=== PATIENT | female | born 1955 | race Caucasian/White ===

== ENCOUNTER 2016-07-05 10:54 | Emergency (ER) | payer OTHER ==
[2016-07-05 11:22] VITALS: BP 130/85
--- NOTE | 2016-07-05 12:17 | UC ---
Upper Extremity HPI - HPI Summary HPI Summary: Patient is a 61yo right hand dominant F who presents to with CC of left shoulder and left scapula pain with headache since last evening around 10pm after a poly lift fell directly onto the L posterior shoulder. She states she felt immediate pain which radiates up to the left side of the neck, down the arm to the elbow and to the anterior shoulder. She feels as thought it is muscle "spasms" which is causing her to have the headaches. She was able to actively rotate the shoulder and adduct and abduct the shoulder, but with 5/10 pain. She has never previously injured the shoulder. Denies bruising, but notes to some redness over the area last night. She was able to sleep without problems. Denies hitting her head. Pain was worse yesterday and better today. Denies numbness or tingling in the arm. She has been icing the shoulder which has improved the pain. - History of Current Complaint Chief Complaint: UCBackPain Stated Complaint: SHOULDER AND NECK INJURY Time Seen by Provider: 07/05/16 12:02 Hx Obtained From: Patient ?: No Onset/Duration: Sudden Onset Severity Initially: Moderate Severity Currently: Mild Pain Intensity: 4 Pain Scale Used: 0-10 Numeric Location Of Pain: Is Discrete @ - left shoulder Character: Aching Aggravating Factor(s): Movement, Internal/External Rotation, Abduction, Adduction Alleviating Factor(s): Ice Associated Signs And Symptoms: Positive: Redness Related History: Dominant Hand Right - Risk Factors Non-Orthopedic Risk Factor: Negative DVT Risk Factors: Negative Septic Arthritis Risk Factor: Negative Compartment Syndrome Risk Factors: Pain - Allergies/Home Medications Allergies/Adverse Reactions: Allergies Allergy/AdvReac Type Severity Reaction Status Date / Time Nitrofurantoin Allergy Severe Swelling Verified 07/05/16 11:22 [From Macrodantin] Shellfish Allergy Allergy Severe Rash Verified 07/05/16 11:22 Ciprofloxacin [From Cipro] Allergy Hives Verified 07/05/16 11:22 PMH/Surg Hx/FS Hx/Imm Hx Previously Healthy: Yes Endocrine History Of: Denies: Diabetes, Thyroid Disease Cardiovascular History Of: Reports: Hypertension Denies: Cardiac Disorders Respiratory History Of: Denies: COPD, Asthma GI/ History Of: Denies: Ulcer - Surgical History Surgical History: Yes Surgery Procedure, Year, and Place: hysterectomy 2007. appendectomy. tonsillectomy - Family History Known Family History: Positive: None - Social History Occupation: Employed Full-time Lives: With Family Alcohol Use: Occasionally Substance Use Type: None Smoking Status (MU): Never Smoked Tobacco Have You Smoked in the Last Year: No - Immunization History Most Recent Influenza Vaccination: 2014 Most Recent Tetanus Shot: UTD Review of Systems Constitutional: Negative Skin: Negative Respiratory: Negative Cardiovascular: Negative Motor: Other - no decreased ROM Musculoskeletal: Arthralgia, Myalgia - pain over posterior shoulder over scapula and rhomboid radiating to the anterior shoulder and left side of neck Neurological: Headache Psychological: Negative All Other Systems Reviewed And Are Negative: Yes Physical Exam Triage Information Reviewed: Yes Completion Of Physical Exam Limited Due To: Extremis Appearance: Well-Nourished Vital Signs: Initial Vital Signs Temp 97.7 F 07/05/16 11:15 Pulse 76 07/05/16 11:15 Resp 16 07/05/16 11:15 BP 130/85 07/05/16 11:15 Pulse Ox 100 07/05/16 11:15 Vital Signs Reviewed: Yes Eyes: Positive: Conjunctiva Clear Neck exam: Normal Neck: Positive: Supple, No Lymphadenopathy, Other: - tenderness over left sternoclediomastoid muscle on palpation Respiratory Exam: Normal Cardiovascular Exam: Normal Cardiovascular: Positive: RRR Musculoskeletal: Positive: Other: - pain with abduction, no pain with adduction. pain with forced adduction. empty can test Neurological Exam: Normal Neurological: Positive: Alert Psychological Exam: Normal Psychological: Positive: Normal Response To Family, Age Appropriate Behavior Skin Exam: Normal Upper Extremity Course/Dx - Course Course Of Treatment: Pain over posterior shoulder over scapula and rhomboid after poly fell on back last evening at work. Pain is radiating to the L side of the neck causing ABDALLA. Empyt can and drop arm test both positive. Barron mian test positive. yerguson test negative. pain on palpaion over sternoclediomastoid muscle of L side and posterior shoulder. Denies pain anteriorly with passive ROM. Full ROM of left shoulder but with pain. Xray of shoulder reveals. Will give flexeril for 5 days and out of work note for 2 days. She is to return if symptoms become worse or numbness or tingling develop. Referred to Dr. Orellana if symptoms persist. - Differential Dx/Diagnosis Differential Diagnosis/HQI/PQRI: Contusion, Fracture (Closed), Strain, Sprain Provider Diagnoses: Muscle Strain Discharge - Discharge Plan Condition: Stable Disposition: HOME Prescriptions: Cyclobenzaprine TAB* [Flexeril 10 MG TAB*] 10 mg PO BID PRN #10 tab PRN Reason: Pain Patient Education Materials: Contusion in Adults (ED), Muscle Spasm (ED) Forms: *Work Release Referrals: Marie Francis RN [Primary Care Provider] - Megan Orellana MD [Medical Doctor] - Additional Instructions: Muscle contusion with spasms from injury: Flexeril: This medication is a muscle relaxant and can help relieve muscle spasms, muscle strain, or pain sensations. Flexeril can cause side effects that may impair your thinking or reactions. Be careful if you drive or do anything that requires you to be awake and alert. Avoid drinking alcohol, which can increase some of the side effects of Flexeril. Ibuprofen 600mg three times daily with meals for discomfort. Return to urgent care if symptoms worsen or fail to improve, notice worsening swelling, warmth or redness around the joint, develop fever, or pain is uncontrolled with OTC medications. Moist heat to the area for comfort. Warm showers or baths may improve symptoms. It is important to remain mobile as tolerated to prevent stiffening of the joints and delay healing. Follow up with your PCP. If symptoms remain for > 6 weeks, please seek special medical attention from an orthopedic physician.
--- NOTE | 2016-07-05 12:57 | RAD ---
INDICATION: Left shoulder injury. TECHNIQUE: 4 views of the left shoulder were obtained. FINDINGS: The bones are in normal alignment. No fracture is seen. There is moderate osteoarthritic change in the acromioclavicular joint. IMPRESSION: NO EVIDENCE OF FRACTURE.
--- NOTE | 2016-07-05 12:58 | RAD ---
INDICATION: Left scapular injury. TECHNIQUE: 3 views of the left scapula were obtained. FINDINGS: The bones are in normal alignment. No fracture is seen. Joint spaces appear maintained. IMPRESSION: NO EVIDENCE FOR FRACTURE.
== END 2016-07-05 13:25 | disposition home or self-care (01) ==
LOC: UCEAST 10:54
DX: S46.912A Strain of unspecified muscle, fascia and tendon at shoulder and upper arm level, left arm, initial encounter (principal); W20.8XXA Other cause of strike by thrown, projected or falling object, initial encounter; Y93.89 Activity, other specified; Y92.9 Unspecified place or not applicable; I10 Essential (primary) hypertension; Z90.710 Acquired absence of both cervix and uterus; Z88.1 Allergy status to other antibiotic agents; Z91.013 Allergy to seafood
CPT/HCPCS: 99212; G0463

== ENCOUNTER 2017-01-22 15:17 | Emergency (ER) | payer OTHER ==
[2017-01-22 17:26] VITALS: BP 135/88
--- NOTE | 2017-01-22 17:31 | UC ---
FLU HPI - HPI Summary HPI Summary: 1 WEEK OF FATIGUE, MALAISE, ST, CONGESTION, MILD COUGH. HAD SEVERAL EPISODES OF WATERY STOOLS YESTERDAY. NONE TODAY. ALSO C/O NAUSEA. HAD FLU SHOT PRIOR TO ONSET OF SX. - History of Current Complaint Chief Complaint: UCRespiratory Stated Complaint: COLD & SORE THROAT Time Seen by Provider: 01/22/17 16:39 Hx Obtained From: Patient Onset/Duration: Gradual Onset, Lasting Days, Still Present Severity Currently: Mild Severity Initially: Mild Pain Intensity: 2 Pain Scale Used: 0-10 Numeric Associated Signs & Symptoms: Positive: Myalgia, Cough, Sore Throat, Nasal Congestion, Diarrhea. Negative: Fever, Vomiting - Allergy/Home Medications Allergies/Adverse Reactions: Allergies Allergy/AdvReac Type Severity Reaction Status Date / Time Nitrofurantoin Allergy Severe Swelling Verified 01/22/17 15:31 [From Macrodantin] Shellfish Allergy Allergy Severe Rash Verified 01/22/17 15:31 Ciprofloxacin [From Cipro] Allergy Hives Verified 01/22/17 15:31 PMH/Surg Hx/FS Hx/Imm Hx Cardiovascular History: Hypertension - Surgical History Surgical History: Yes Surgery Procedure, Year, and Place: hysterectomy 2006. appendectomy. tonsillectomy - Family History Known Family History: Positive: Hypertension - Social History Alcohol Use: Rare Substance Use Type: None Smoking Status (MU): Never Smoked Tobacco Have You Smoked in the Last Year: No - Immunization History Most Recent Influenza Vaccination: Most Recent Tetanus Shot: UTD Review of Systems Constitutional: Fatigue ENT: Sore Throat, Nasal Discharge Respiratory: Cough Gastrointestinal: Negative Genitourinary: Negative All Other Systems Reviewed And Are Negative: Yes Physical Exam Triage Information Reviewed: Yes Appearance: Well-Appearing, No Pain Distress, Well-Nourished Vital Signs: Initial Vital Signs Temp 97.4 F 01/22/17 15:26 Pulse 88 01/22/17 15:26 Resp 16 01/22/17 15:26 BP 136/84 01/22/17 15:26 Pulse Ox 100 01/22/17 15:26 Vital Signs Reviewed: Yes Eyes: Positive: Conjunctiva Clear ENT: Positive: Hearing grossly normal, Pharynx normal, TMs normal Neck: Positive: Supple, Nontender, No Lymphadenopathy Respiratory Exam: Normal Cardiovascular Exam: Normal Abdomen Description: Positive: Soft Musculoskeletal: Positive: No Edema Neurological: Positive: Alert Psychological: Positive: Age Appropriate Behavior Skin: Negative: rashes Diagnostics - Laboratory Diagnostic Studies Completed/Ordered: RAPID STREP NEGATIVE Flu Course/Dx - Differential Dx/Diagnosis Provider Diagnoses: ACUTE VIRAL SYNDROME Discharge - Discharge Plan Condition: Stable Disposition: HOME Prescriptions: Ondansetron ODT TAB* [Zofran Odt TAB*] 4 mg PO Q6H PRN #20 tab.odt PRN Reason: Nausea/Vomiting Patient Education Materials: Viral Syndrome (ED) Forms: *Work Release Referrals: Kimber IVEY SEWING ROOM SUPERVISOR,Marie [Primary Care Provider] - If Needed Additional Instructions: STREP TEST NEGATIVE. ENSURE ADEQUATE HYDRATION. CLEAR LIQUIDS, BLAND DIET. AVOID CAFFEINE, DAIRY, GREASY, SPICY FOODS. ONCE YOU ARE TOLERATING CLEAR LIQUIDS YOU CAN ADVANCE TO SIMPLE, BLAND FOODS. FOLLOW-UP WITH YOUR PCP IF YOU ARE NOT IMPROVING EXPECTED OVER THE NEXT WEEK OR SO.
== END 2017-01-22 17:23 | disposition home or self-care (01) ==
LOC: UCEAST 15:17
DX: B34.9 Viral infection, unspecified (principal)
CPT/HCPCS: 87651; 99212; G0463

== ENCOUNTER 2017-03-12 15:51 | Emergency (ER) | payer OTHER ==
[2017-03-12 18:19] LABS: ABS Basophils 0 10^3/ul (0-0.2); ABS Eosinophils 0 10^3/ul (0-0.6); ABS Lymphocytes 1.1 10^3/ul (1.0-4.8); ABS Monocytes 0.3 10^3/ul (0-0.8); ABS Neutrophils 3.8 10^3/ul (1.5-7.7); ABS Nucleated RBC 0 10^3/ul; Eosinophil % 0.7 % (0-6); Hematocrit 40 % (35-47); Lymphocyte % 21.9 % (25-47); Mean Corpuscular HGB Conc 35 g/dl (31-36); Mean Corpuscular Hemoglobin 32 pg (27-31); Mean Corpuscular Volume 90 fL (80-97); Mean Platelet Volume 8 um3 (7.4-10.4); Nucleated Red Blood Cells % 0; Platelet Count 296 10^3/ul (150-450); Red Blood Count 4.43 10^6/ul (4.0-5.4); Red Cell Distribution Width 13 % (10.5-15); White Blood Count 5.3 10^3/ul (3.5-10.8)
[2017-03-12 18:30] LABS: EGFR Non-African American 68.2 (>60)
[2017-03-12 18:37] LABS: INR 0.85 (0.77-1.02)
--- NOTE | 2017-03-12 19:04 | RAD ---
HISTORY: Chest pain COMPARISONS: March 28, 2015 VIEWS: 1: frontal portable view of the chest at 6:38 PM FINDINGS: LINES AND TUBES: None. CARDIOMEDIASTINAL SILHOUETTE: The cardiomediastinal silhouette is normal for portable technique. PLEURA: The costophrenic angles are sharp. No pleural abnormalities are noted. LUNG PARENCHYMA: The lungs are clear. ABDOMEN: The upper abdomen is clear. There is no subphrenic gas. BONES AND SOFT TISSUES: No bone or soft tissue abnormalities are noted. IMPRESSION: NO ACTIVE CARDIOPULMONARY DISEASE.
[2017-03-12 22:09] VITALS: BP 122/90
--- NOTE | 2017-03-13 12:00 | ED ---
Cher Frances Julia, scribed for Jose Armando Prieto MD on 03/12/17 at 1755 . HPI Chest Pain - HPI Summary HPI Summary: This patient is a 62 year old F presenting to [facility] with a chief complaint of mid sternal chest pressure since 14:30 today. Patient reports dizziness, tingling, lightheadedness, elevated HR, and being flushed. Patient reports anxiety about symptoms and states I just dont feel like myself. Patient denies any radiating pain. The patient rates the pain 1/10 in severity. Symptoms aggravated by nothing. Symptoms alleviated by nothing. Patient reports her BP was 140/86 earlier today. Patient has a history of HTN. Patient denies history of TN or PE. Patients grounds restoration specialist is Dr. Arreola. Patient currently takes Lovenox. - History of Current Complaint Chief Complaint: EDChestPainROMI Time Seen by Provider: 03/12/17 16:58 Hx Obtained From: Patient Onset/Duration: Started Hours Ago Timing: Constant Pain Intensity: 1 Pain Scale Used: 0-10 Numeric Chest Pain Location: Mid Sternal Chest Pain Radiates: No Character: Pressure/Squeezing Aggravating Factor(s): Nothing Alleviating Factor(s): Nothing Associated Signs and Symptoms: Positive: Other: - dizziness, tingling, lightheadedness, elevated HR, and being flushed - Allergy/Home Medications Allergies/Adverse Reactions: Allergies Allergy/AdvReac Type Severity Reaction Status Date / Time Nitrofurantoin Allergy Severe Swelling Verified 01/22/17 15:31 [From Macrodantin] Shellfish Allergy Allergy Severe Rash Verified 01/22/17 15:31 Ciprofloxacin [From Cipro] Allergy Hives Verified 01/22/17 15:31 PMH/Surg Hx/FS Hx/Imm Hx Endocrine/Hematology History: Denies: Hx Diabetes, Hx Thyroid Disease Cardiovascular History: Reports: Hx Hypertension Denies: Hx Myocardial Infarction, Hx Pacemaker/ICD Respiratory History: Denies: Hx Asthma, Hx Chronic Obstructive Pulmonary Disease (COPD), Hx Pulmonary Embolism GI History: Denies: Hx Ulcer History: Denies: Hx Renal Disease Musculoskeletal History: Denies: Hx Rheumatoid Arthritis Sensory History: Denies: Hx Hearing Aid Psychiatric History: Denies: Hx Panic Disorder - Cancer History Cancer Type, 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 Hysterectomy - Surgical History Surgery Procedure, Year, and Place: hysterectomy 2007. appendectomy. tonsillectomy - Immunization History Date of Influenza Vaccine: 01/07 Immunizations Up to Date: Yes Infectious Disease History: No Infectious Disease History: Denies: Hx Hepatitis, Hx Human Immunodeficiency Virus (HIV), Traveled Outside the [place] in Last 30 Days - Family History Known Family History: Positive: None, Hypertension - Social History Alcohol Use: Rare Substance Use Type: Reports: None Smoking Status (MU): Never Smoked Tobacco Have You Smoked in the Last Year: No Review of Systems Positive: Other - "flushed" Positive: Palpitations - elevated HR, Chest Pain Neurological: Other - dizziness, tingling, lightheaded Positive: Anxious All Other Systems Reviewed And Are Negative: Yes Physical Exam - Summary Physical Exam Summary: Appearance: The patient is well-nourished in no acute distress and in no acute pain. Skin: The skin is warm and dry and skin color reflects adequate perfusion. HEENT: The head is normocephalic and atraumatic. The pupils are equal and reactive. The conjunctivae are clear and without drainage. Nares are patent and without drainage. Mouth reveals moist mucous membranes and the throat is without erythema and exudate. The external ears are intact. The ear canals are patent and without drainage. The tympanic membranes are intact. Neck: the neck is supple with full range of motion and non-tender. There are no carotid bruits. There is no neck vein distension. Respiratory: Chest is non-tender. Lungs are clear to auscultation and breath sounds are symmetrical and equal. Cardiovascular: Heart is regular rate and rhythm. There is no murmur or rub auscultated. There is no peripheral edema and pulses are symmetrical and equal. Abdomen: The abdomen is soft and non-tender. There are normal bowel sounds heard in all four quadrants and there is no organomegaly palpated. Musculoskeletal: There is no back tenderness noted. Extremities are non-tender with full range of motion. There is good capillary refill. There is no peripheral edema or calf tenderness elicited. There is mild tenderness to the L peristernal area. Neurological: Patient is alert and oriented to person, place and time. The patient has symmetrical motor strength in all four extremities. Cranial nerves are grossly intact. Deep tendon reflexes are symmetrical and equal in all four extremities. Psychiatric: The patient has an appropriate affect and does not exhibit any anxiety or depression. Triage Information Reviewed: Yes Vital Signs On Initial Exam: Initial Vitals Temp Pulse Resp BP Pulse Ox 99.3 F 107 16 145/95 100 03/12/17 16:04 03/12/17 16:04 03/12/17 16:04 03/12/17 16:04 03/12/17 16:04 Vital Signs Reviewed: Yes - Luis Coma Scale Coma Scale Total: 15 Diagnostics - Vital Signs Vital Signs Temp Pulse Resp BP Pulse Ox 03/12/17 16:24 99 F 101 21 147/88 99 03/12/17 16:04 99.3 F 107 16 145/95 100 - Laboratory Lab Results: Lab Results 03/12/17 03/12/17 03/12/17 Range/Units 18:05 18:05 18:05 WBC 5.3 (3.5-10.8) 10^3/ul RBC 4.43 (4.0-5.4) 10^6/ul Hgb 14.0 (12.0-16.0) g/dl Hct 40 (35-47) % MCV 90 (80-97) fL MCH 32 H (27-31) pg MCHC 35 (31-36) g/dl RDW 13 (10.5-15) % Plt Count 296 (150-450) 10^3/ul MPV 8 (7.4-10.4) um3 Neut % (Auto) 71.7 (38-83) % Lymph % (Auto) 21.9 L (25-47) % [place] % (Auto) 5.3 (1-9) % Eos % (Auto) 0.7 (0-6) % Baso % (Auto) 0.4 (0-2) % Absolute Neuts (auto) 3.8 (1.5-7.7) 10^3/ul Absolute Lymphs (auto) 1.1 (1.0-4.8) 10^3/ul Absolute Monos (auto) 0.3 (0-0.8) 10^3/ul Absolute Eos (auto) 0 (0-0.6) 10^3/ul Absolute Basos (auto) 0 (0-0.2) 10^3/ul Absolute Nucleated RBC 0 10^3/ul Nucleated RBC % 0 INR (Anticoag Therapy) 0.85 (0.77-1.02) D-Dimer, Quantitative < 200 (Less Than 230) ng/mL Sodium 140 (133-145) mmol/L Potassium 3.4 L (3.5-5.0) mmol/L Chloride 103 (101-111) mmol/L Carbon Dioxide 29 (22-32) mmol/L Anion Gap 8 (2-11) mmol/L BUN 16 (6-24) mg/dL Creatinine 0.85 (0.51-0.95) mg/dL Est GFR ( Amer) 87.7 (>60) Est GFR (Non-Af Amer) 68.2 (>60) BUN/Creatinine Ratio 18.8 (8-20) Glucose 100 (70-100) mg/dL Lactic Acid (0.5-2.0) mmol/L Calcium 10.0 (8.6-10.3) mg/dL Total Bilirubin 0.30 (0.2-1.0) mg/dL AST 20 (13-39) U/L ALT 20 (7-52) U/L Alkaline Phosphatase 69 (34-104) U/L Troponin I 0.00 (<0.04) ng/mL Total Protein 7.3 (6.4-8.9) g/dL Albumin 4.5 (3.2-5.2) g/dL Globulin 2.8 (2-4) g/dL Albumin/Globulin Ratio 1.6 (1-3) 03/12/17 03/12/17 Range/Units 18:05 20:47 WBC (3.5-10.8) 10^3/ul RBC (4.0-5.4) 10^6/ul Hgb (12.0-16.0) g/dl Hct (35-47) % MCV (80-97) fL MCH (27-31) pg MCHC (31-36) g/dl RDW (10.5-15) % Plt Count (150-450) 10^3/ul MPV (7.4-10.4) um3 Neut % (Auto) (38-83) % Lymph % (Auto) (25-47) % [place] % (Auto) (1-9) % Eos % (Auto) (0-6) % Baso % (Auto) (0-2) % Absolute Neuts (auto) (1.5-7.7) 10^3/ul Absolute Lymphs (auto) (1.0-4.8) 10^3/ul Absolute Monos (auto) (0-0.8) 10^3/ul Absolute Eos (auto) (0-0.6) 10^3/ul Absolute Basos (auto) (0-0.2) 10^3/ul Absolute Nucleated RBC 10^3/ul Nucleated RBC % INR (Anticoag Therapy) (0.77-1.02) D-Dimer, Quantitative (Less Than 230) ng/mL Sodium (133-145) mmol/L Potassium (3.5-5.0) mmol/L Chloride (101-111) mmol/L Carbon Dioxide (22-32) mmol/L Anion Gap (2-11) mmol/L BUN (6-24) mg/dL Creatinine (0.51-0.95) mg/dL Est GFR ( Amer) (>60) Est GFR (Non-Af Amer) (>60) BUN/Creatinine Ratio (8-20) Glucose (70-100) mg/dL Lactic Acid 1.6 (0.5-2.0) mmol/L Calcium (8.6-10.3) mg/dL Total Bilirubin (0.2-1.0) mg/dL AST (13-39) U/L ALT (7-52) U/L Alkaline Phosphatase (34-104) U/L Troponin I 0.00 (<0.04) ng/mL Total Protein (6.4-8.9) g/dL Albumin (3.2-5.2) g/dL Globulin (2-4) g/dL Albumin/Globulin Ratio (1-3) Result Diagrams: 03/12/17 18:05 03/12/17 18:05 Lab Statement: Any lab studies that have been ordered have been reviewed, and results considered in the medical decision making process. - Radiology CXR Radiology Interpretation Completed By: Radiologist - NO ACTIVE CARDIOPULMONARY DISEASE. ED Physician has reviewed this report. - EKG 16:06 Cardiac Rate: Tachycardia EKG Rhythm: Sinus Tachycardia - at 104 BPM EKG Interpretation: L axis deviation, L anterior vesicular block EKG Comparison: No Significant Change - from all previous EKG Chest Pain Course/Dx - Course Course Of Treatment: Ms. Perenyi presented with left chest pressure and just not feeling right starting about 1430. She was stable in appearance with borderline tachycardia. She was noted to have the borderline tachycardia on previous presentations and it improved here. Her W/U was negative including two troponins and a d-dimer. She was D/C'd to F/U closely. - Diagnoses Provider Diagnoses: Chest pain Discharge - Discharge Plan Condition: Stable Disposition: HOME Patient Education Materials: Chest Pain (ED) Referrals: Kimber IVEY BUSINESS AFFAIRS MANAGER,Marie [Primary Care Provider] - Additional Instructions: Patient should follow up with Primary Care Physician next week if symptoms are not improved. RETURN TO THE EMERGENCY DEPARTMENT FOR CHANGING OR WORSENING SYMPTOMS. The documentation as recorded by the Cher hurd Julia accurately reflects the service I personally performed and the decisions made by me, Jose Armando Prieto MD.
== END 2017-03-12 22:04 | disposition home or self-care (01) ==
LOC: ED 15:51
DX: R07.89 Other chest pain (principal); Z88.8 Allergy status to other drugs, medicaments and biological substances; Z88.3 Allergy status to other anti-infective agents
CPT/HCPCS: 36415; 71045; 80053; 83605; 84484; 85025; 85379; 85610; 93005; 99284

== ENCOUNTER 2017-06-04 11:00 | Emergency (ER) | payer OTHER ==
[2017-06-04 11:21] VITALS: BP 143/92
--- NOTE | 2017-06-04 11:36 | UC ---
Respiratory Complaint HPI - HPI Summary HPI Summary: Has had prod cough for over 7 days, did see PCP and dx: viral illmness. Richard cough very bad, yellow phlegm, has occasional fever/chills OTC cold meds not helping - History of Current Complaint Chief Complaint: UCRespiratory Stated Complaint: CHEST CONGESTION Time Seen by Provider: 06/04/17 11:27 Hx Obtained From: Patient ?: No Onset/Duration: Gradual Onset Timing: Constant Severity Initially: Mild Severity Currently: Moderate Pain Intensity: 2 Character: Cough: Productive Aggravating Factors: Deep Breaths, Recumbent Position Alleviating Factors: Nothing Associated Signs And Symptoms: Positive: Fever, Chills, Nasal Congestion. Negative: Hemoptysis - Allergies/Home Medications Allergies/Adverse Reactions: Allergies Allergy/AdvReac Type Severity Reaction Status Date / Time ciprofloxacin [From Cipro] Allergy Hives Verified 06/04/17 11:21 nitrofurantoin Allergy Swelling Verified 06/04/17 11:21 [From Macrodantin] shellfish derived Allergy Rash Verified 06/04/17 11:21 PMH/Surg Hx/FS Hx/Imm Hx Previously Healthy: Yes Cardiovascular History: Hypertension - Surgical History Surgical History: Yes Surgery Procedure, Year, and Place: hysterectomy 2006. appendectomy. tonsillectomy - Family History Known Family History: Positive: None, Hypertension - Social History Occupation: Employed Full-time - [employer] Lives: Alone Alcohol Use: Rare Substance Use Type: None Smoking Status (MU): Never Smoked Tobacco Have You Smoked in the Last Year: No - Immunization History Most Recent Influenza Vaccination: Most Recent Tetanus Shot: UTD Review of Systems Constitutional: Fever, Chills, Fatigue Skin: Negative Respiratory: Cough Cardiovascular: Negative Gastrointestinal: Negative Musculoskeletal: Negative Neurological: Negative Psychological: Negative Is Patient Immunocompromised?: No All Other Systems Reviewed And Are Negative: Yes Physical Exam Triage Information Reviewed: Yes Appearance: Well-Appearing, No Pain Distress, Well-Nourished Vital Signs: Initial Vital Signs Temp 98.4 F 06/04/17 11:17 Pulse 88 06/04/17 11:17 Resp 18 06/04/17 11:17 BP 143/92 06/04/17 11:17 Pulse Ox 100 06/04/17 11:17 Vital Signs Reviewed: Yes Eyes: Positive: Conjunctiva Clear ENT: Positive: Nasal congestion. Negative: Nasal drainage, Sinus tenderness Neck exam: Normal Neck: Positive: No Lymphadenopathy Respiratory: Positive: Rhonchi, Other: - persistent prod cough. Negative: Wheezing Cardiovascular Exam: Normal Cardiovascular: Positive: RRR Musculoskeletal Exam: Normal Neurological Exam: Normal Psychological Exam: Normal Skin Exam: Normal UC Diagnostic Evaluation - Laboratory O2 Sat by Pulse Oximetry: 100 - Radiology Xray Interpretation: No Acute Changes Radiology Interpretation Completed By: Radiologist Respiratory Course/Dx - Differential Dx/Diagnosis Differential Diagnosis/HQI/PQRI: Bronchitis, Influenza, Lower Resp Infection, Sinusitis Provider Diagnoses: acute bronchitis Discharge - Sign-Out/Discharge Documenting (check all that apply): Discharge - Discharge Plan Condition: Stable Disposition: HOME Prescriptions: Azithromycin TAB* [Zithromax TAB (Z-MARLI) 250 mg #6 tabs] 2 tab PO .TODAY, THEN 1 DAILY #1 marli Benzonatate 200 mg PO Q8HR PRN #12 capsule PRN Reason: Cough Patient Education Materials: Acute Bronchitis (ED) Forms: *Work Release Referrals: No Primary Care Phys,NOPCP [Primary Care Provider] - Additional Instructions: drink plenty of fluids use mucinex from home as directed take zithromax and use benzonotate (for cough) as prescribed rest return here or report to ER if your symptoms worsen at any time - Billing Disposition and Condition Condition: STABLE Disposition: HOME
--- NOTE | 2017-06-04 11:52 | RAD ---
INDICATION: Persistent cough and fever COMPARISON: Chest x-ray dated March 12, 2017 TECHNIQUE: PA and lateral views of the chest were obtained. FINDINGS: The heart and mediastinum are normal in size and contour. The lungs are grossly clear. There is no evidence of large pleural effusion. Visualized bones are normal for the patient's age. There is no radiographic evidence of free air beneath the diaphragm IMPRESSION: No radiographic evidence of acute cardiopulmonary disease.
== END 2017-06-04 12:25 | disposition home or self-care (01) ==
LOC: UCEAST 11:00
DX: J20.9 Acute bronchitis, unspecified (principal); I10 Essential (primary) hypertension; Z88.1 Allergy status to other antibiotic agents
CPT/HCPCS: 71046; 99211; G0463

== ENCOUNTER 2017-09-01 12:24 | Emergency (ER) | payer OTHER ==
[2017-09-01 12:39] VITALS: BP 142/94
--- NOTE | 2017-09-01 12:48 | UC ---
Respiratory Complaint HPI - HPI Summary HPI Summary: Pt is 62 y/o female c/o heavy congestion with a non-productive cough in chest onset yesterday and worsening this AM. Described as tightness, rated an 8/10, and feels like she swallowed something. Associated Sx: Dry cough, mild dyspnea , chills, diaphoresis, hoarseness. Denies: fever, chest pain. Pt has been taking Mucinex which has failed to alleviate Sx. She has been seen for similar Sx 2 other instances this year in which she was diagnosed for Bronchitis. 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 PSHx: Hysterectomy, Appendectomy. SHx: Occasional EtOH. FHx: CA. - History of Current Complaint Stated Complaint: COUGH CONGESTION Time Seen by Provider: 09/01/17 12:29 Hx Obtained From: Patient Onset/Duration: Lasting Days - yesterday, Still Present, Worse Since - this AM Timing: Constant Severity Currently: Severe Pain Intensity: 8 - "Tightness" Pain Scale Used: 0-10 Numeric Character: Cough: Nonproductive Associated Signs And Symptoms: Positive: Dyspnea - mild, Chills, Hoarseness - Allergies/Home Medications Allergies/Adverse Reactions: Allergies Allergy/AdvReac Type Severity Reaction Status Date / Time ciprofloxacin [From Cipro] Allergy Hives Verified 09/01/17 12:39 nitrofurantoin Allergy Swelling Verified 09/01/17 12:39 [From Macrodantin] shellfish derived Allergy Rash Verified 09/01/17 12:39 Home Medications: Home Medications guaiFENesin [Mucinex] 100 mg PO ONCE PRN 09/01/17 [History Confirmed 09/01/17] PMH/Surg Hx/FS Hx/Imm Hx Previously Healthy: No Endocrine History: Other Other Endocrine History: Neg: DM Cardiovascular History: Hypertension - Surgical History Surgical History: Yes Surgery Procedure, Year, and Place: hysterectomy 2006. appendectomy. tonsillectomy - Family History Known Family History: Positive: Hypertension, Other - CA - Social History Occupation: Employed Full-time Lives: With Family - sister Alcohol Use: Rare Substance Use Type: None Smoking Status (MU): Never Smoked Tobacco Have You Smoked in the Last Year: No - Immunization History Most Recent Influenza Vaccination: Most Recent Tetanus Shot: UTD Review of Systems Constitutional: Chills, Other - Neg: fever Skin: Other - Pos: diaphoresis ENT: Sinus Congestion - "chest congestion", Other - Pos: Hoarseness Respiratory: Cough - Non-productive, Other - Pos: dyspnea Cardiovascular: Other - Neg: Chest pain All Other Systems Reviewed And Are Negative: Yes Physical Exam - Summary Physical Exam Summary: VITAL SIGNS: Reviewed. GENERAL: Patient is a well-developed and nourished female who is lying comfortable in the stretcher. Patient is not in any acute respiratory distress. HEAD AND FACE: Normocephalic EYES: PERRLA, EOMI x 2. EARS: Hearing grossly intact. MOUTH: Oropharynx within normal limits. NECK: Supple, trachea is midline, no adenopathy, no JVD, no carotid bruit. CHEST: Symmetric, no tenderness at palpation LUNGS: Clear to auscultation bilaterally. No wheezing or crackles. CVS: Regular rate and rhythm, S1 and S2 present, no murmurs or gallops appreciated. ABDOMEN: Soft, non-tender. Bowel sounds are normal. No abdominal abnormal pulsations. EXTREMITIES: Full ROM in all major joints, no edema, no cyanosis or clubbing. NEURO: Alert and oriented x 3. No acute neurological deficits. Speech is normal and follows commands. SKIN: Dry and warm Triage Information Reviewed: Yes Vital Signs: Initial Vital Signs Temp 97 F 09/01/17 12:34 Pulse 90 09/01/17 12:34 Resp 20 09/01/17 12:34 BP 142/94 09/01/17 12:34 Pulse Ox 97 09/01/17 12:34 Vital Signs Reviewed: Yes Diagnostic Evaluation - Laboratory O2 Sat by Pulse Oximetry: 97 - Radiology Xray Interpretation: No Acute Changes - Impression: No active cardiopulmonary disease Radiology Interpretation Completed By: Radiologist - Provider has reviewed report. - EKG EKG Comments: 1245 Cardiac Rate: NL - 79 bpm Cardiac Rhythm: Sinus: Normal ST Segment: Normal Respiratory Course/Dx - Course Course Of Treatment: The patient was found to have increased BP in UC. The patient will follow up with PCP for better control of BP. Chest x-ray impression: Negative for acute. It seems that the patient has bronchitis. Patient was instructed that usually been crevices viral however she requires antibiotics. She reports that this is the second time this year she had the same symptoms that usually she requires antibiotics. Therefore to the insistence of the patient she will be given a prescription for azithromycin. Patient is given a medically stable alert and oriented 3. - Differential Dx/Diagnosis Provider Diagnoses: Bronhitis Discharge - Sign-Out/Discharge Documenting (check all that apply): Patient Departure - Discharge Plan Condition: Stable Disposition: HOME Prescriptions: Azithromycin TAB* [Zithromax TAB (Z-MARLI) 250 mg #6 tabs] 2 tab PO .TODAY, THEN 1 DAILY #1 marli Patient Education Materials: Acute Bronchitis (ED) Referrals: Kimber LÓPEZP,Marie [Primary Care Provider] - 2 Days Additional Instructions: FOLLOW UP WITH YOUR PRIMARY CARE PROVIDER WITHIN ONE WEEK FOR HIGH BLOOD PRESSURE NOTED TODAY. RETURN TO (URGENT CARE OR THE ED) FOR ANY WORSENING OR NEW SYMPTOMS. - Billing Disposition and Condition Condition: STABLE Disposition: Home
--- NOTE | 2017-09-01 13:12 | RAD ---
HISTORY: cough COMPARISONS: June 04, 2017 VIEWS: 4: Frontal dual-energy and lateral views of the chest. FINDINGS: CARDIOMEDIASTINAL SILHOUETTE: The aorta is tortuous. The cardiomediastinal silhouette is otherwise unremarkable. BASIL: The basil are normal. PLEURA: The costophrenic angles are sharp. No pleural abnormalities are noted. LUNG PARENCHYMA: The lungs are clear. ABDOMEN: The upper abdomen is clear. There is no subphrenic gas. BONES AND SOFT TISSUES: Degenerative changes are noted along the spine. OTHER: None. IMPRESSION: NO ACTIVE CARDIOPULMONARY DISEASE.
== END 2017-09-01 13:35 | disposition home or self-care (01) ==
LOC: UCEAST 12:24
DX: J40 Bronchitis, not specified as acute or chronic (principal); I10 Essential (primary) hypertension; Z88.1 Allergy status to other antibiotic agents; Z91.013 Allergy to seafood; Z82.49 Family history of ischemic heart disease and other diseases of the circulatory system; Z80.9 Family history of malignant neoplasm, unspecified
CPT/HCPCS: 71046; 93005; 99212; G0463

== ENCOUNTER 2017-11-12 18:27 | Emergency (ER) | payer OTHER ==
--- OUTSIDE RECORDS SUMMARY | 2017-11-12 18:34 | XMS REPORT ---
:1955 External Reference #:[id number] Author Organization [employer] Address [address] [facility] [place] [address] Phone [phone] Care Team Providers Name Role Phone Marie Quiroga FNP Primary Care Physician Unavailable Payers Type Date Identification Numbers Payment Provider Subscriber Commercial Effective: Policy Number: [id number] [employer] Tyrone Ambrocio 2010 Expires: 2012 PayID: [id number] [address] [place] [address] Workers Compensation Effective: 2016 Policy Number: Heaven Tyrone Ambrocio [id number] Onset: 2016 Group Number: [id number] [address] Group Name: Brian [phone] [place] [address] PayID: HEAVEN Problems Description No Information Family History Date Family Member(s) Problem(s) Comments General Breast Cancer Social History Type Date Description Comments Marital Status Single Lives With Alone Occupation Nurse Work Status Currently Working ETOH Use Rarely consumes alcohol Smoking Patient has never smoked Daily Caffeine Consumes on average 2 cups of regular coffee per day Exercise Type/Frequency Exercises sporadically Allergies, Adverse Reactions, Alerts Date Description Reaction Status Severity Comments 07/22/2016 Cipro active 09/26/2017 Macrodantin active 09/26/2017 Shellfish-derived Products active Medications Medication Date Status Form Strength Qnty SIG Indications Ordering Provider Losartan Active Tablets 50mg 1 by Unknown Potassium 00 mouth every day Calcium & Active Unknown Vitamin D3 00 [facility] Active Capsules 500-50mg Unknown Extract 00 Vital Signs Date Vital Result Comment 09/26/2017 Height 64 inches 5'4" Weight 190.00 lb Respiratory Rate 16 /min Pain Level 5 BMI (Body Mass Index) 32.6 kg/m2 08/04/2017 Height 64 inches 5'4" Heart Rate 85 /min BP Systolic 98 mmHg BP Diastolic 68 mmHg Respiratory Rate 16 /min Body Temperature 98.3 F Pain Level 7 04/28/2017 Height 64 inches 5'4" Heart Rate 64 /min BP Systolic 146 mmHg BP Diastolic 90 mmHg Respiratory Rate 16 /min Body Temperature 97.0 F Pain Level 8 12/20/2016 Height 64 inches 5'4" Weight 190.00 lb Heart Rate 82 /min Respiratory Rate 16 /min Body Temperature 97.2 F Pain Level 5 BMI (Body Mass Index) 32.6 kg/m2 11/08/2016 Height 64 inches 5'4" Weight 190.00 lb BP Systolic 114 mmHg BP Diastolic 76 mmHg Respiratory Rate 18 /min Pain Level 2 BMI (Body Mass Index) 32.6 kg/m2 08/30/2016 Height 64 inches 5'4" Weight 190.00 lb Heart Rate 78 /min Respiratory Rate 14 /min Pain Level 6 BMI (Body Mass Index) 32.6 kg/m2 07/22/2016 Height 64 inches 5'4" Weight 190.00 lb BP Systolic 121 mmHg BP Diastolic 78 mmHg Respiratory Rate 17 /min Body Temperature 97.6 F Pain Level 5 BMI (Body Mass Index) 32.6 kg/m2 Results Description No Information Procedures Date CPT Code Description Status 04/28/2017 43771 Inject/Drain Joint/Bursa Major W/O US Completed Encounters Type Date Location Provider CPT E/M Dx Office Visit 09/26/2017 [facility] 12836 S46.012D 1:15p Of Andrea LAMB M54.12 M75.52 Office Visit 08/04/2017 10:45a [facility] 86245 S46.012D Of Andrea Man MD M54.2 M54.12 Office Visit 04/28/2017 1:00p [facility] 21369 S46.012D Of Andrea Man MD S46.012D M54.2 Office Visit 12/20/2016 1:15p [facility] 16065 S46.012D Of Andrea Man MD M54.2 Office Visit 11/08/2016 1:00p [facility] 09881 S46.812D Of Andrea Man MD M75.52 Office Visit 08/30/2016 1:15p [facility] 24352 S46.812A Of Andrea Man MD Office Visit 07/22/2016 1:30p [facility] 04620 S46.812A Of Andrea Man MD S46.012A M75.52 Plan of Care 09/26/2017 - Chris Man, MDS46.012D Strain of musc/tend the rotator cuff of left shoulder, subsFollow up:Follow up: 3 qvkgvnL02.12 Radiculopathy, cervical wlolttQ93.52 Bursitis of left shoulder
--- OUTSIDE RECORDS SUMMARY | 2017-11-12 18:34 | XMS REPORT ---
:1955 External Reference #:[id number] Author Organization [employer] Address [address] [facility] [place] [address] Phone [phone] Care Team Providers Name Role Phone Marie Quiroga FNP Primary Care Physician Unavailable Payers Type Date Identification Numbers Payment Provider Subscriber Commercial Effective: Policy Number: [id number] [employer] Tyrone Ambrocio 2010 Expires: 2012 PayID: [id number] [address] [place] [address] Workers Compensation Effective: 2016 Policy Number: Heaven Ambrocio [id number] Onset: 2016 Group Number: [id number] [address] Group Name: Brian [phone] [place] [address] PayID: HEAVEN Problems Date Description Provider Status Onset: 11/11/2017 Cervical disc disorder Fernando Hoffman MD Active Onset: 11/11/2017 Brachial neuritis Fernando Hoffman MD Active Onset: 11/11/2017 Cervical spondylosis Fernando Hoffman MD Active Family History Date Family Member(s) Problem(s) Comments [...] Procedures Date CPT Code Description Status 04/28/2017 10970 Inject/Drain Joint/Bursa Major W/O US Completed Encounters Type Date Location Provider CPT E/M Dx Office Visit 09/26/2017 [facility], 24316 S46.012D 1:15p Of Andrea LAMB M54.12 M75.52 Office Visit 08/04/2017 10:45a [facility] 14023 S46.012D Of Andrea Man MD M54.2 M54.12 Office Visit 04/28/2017 1:00p [facility] 81809 S46.012D Of Andrea Man MD S46.012D M54.2 Office Visit 12/20/2016 1:15p [facility] 02137 S46.012D Of Andrea Man MD M54.2 Office Visit 11/08/2016 1:00p [facility] 87294 S46.812D Of Andrea Man MD M75.52 Office Visit 08/30/2016 1:15p [facility] 96040 S46.812A Of Andrea Man MD Office Visit 07/22/2016 1:30p [facility] 71647 S46.812A Of Andrea Man MD S46.012A M75.52 Plan of Care 11/11/2017 - Vassilmanjit Hoffman, MDM47.892 Other spondylosis, cervical regionFollow up:Rv prnM54.12 Radiculopathy, cervical yrfbigM36.122 Cervical disc disorder at C5-C6 level with xjtbqmcetxsvxB68.121 Cervical disc disorder at C4-C5 level with radiculopathy
[2017-11-12 18:50] VITALS: BP 141/83
[2017-11-12] MEDS ORDERED: Cephalexin CAP* 500 MG PO ONE ×2 (19:56→19:57)
--- NOTE | 2017-11-12 20:00 | UC ---
Skin Complaint HPI - HPI Summary HPI Summary: This patient is a 62 year old F presenting to [facility] with a chief complaint of growth of her sebaceous cyst directly between her breasts. She states that she sees a breast specialist that has been following it with her and it has been benign. In the past coupled days the cyst has grown and she plans to contact her doctor Tuesday. The patient rates the pain 6/10 in severity. Patient denies drainage and fever. - History of Current Complaint Chief Complaint: UCSkin Time Seen by Provider: 11/12/17 19:51 Stated Complaint: SKIN COMPLAINT Hx Obtained From: Patient Onset/Duration: Still Present Timing: Constant Onset Severity: Moderate Current Severity: Moderate Pain Intensity: 6 Pain Scale Used: 0-10 Numeric Character: Raised Associated Signs & Symptoms: Positive: Negative - fever and drainage - Allergy/Home Medications Allergies/Adverse Reactions: Allergies Allergy/AdvReac Type Severity Reaction Status Date / Time ciprofloxacin [From Cipro] Allergy Hives Verified 11/12/17 18:50 nitrofurantoin Allergy Swelling Verified 11/12/17 18:50 [From Macrodantin] shellfish derived Allergy Rash Verified 11/12/17 18:50 Home Medications: Home Medications Losartan/Hydrochlorothiazide [Losartan Potassium/Hydroc 50-12.5 mg] 1 tab PO BID 11/12/17 [History Confirmed 11/12/17] Review of Systems Constitutional: Negative - fever Skin: Other - sebaceous cyst without drainage All Other Systems Reviewed And Are Negative: Yes PMH/Surg Hx/FS Hx/Imm Hx - Additional Past Medical History Additional PMH: ATYPICAL NEVUS Cardiovascular History: Hypertension - Surgical History Surgical History: Yes Surgery Procedure, Year, and Place: hysterectomy 2006. appendectomy. tonsillectomy. skin lesions removed from arm, leg, forehead - Family History Known Family History: Positive: Hypertension, Other - CA - Social History Alcohol Use: None Substance Use Type: None Smoking Status (MU): Never Smoked Tobacco Have You Smoked in the Last Year: No - Immunization History Most Recent Influenza Vaccination: Most Recent Tetanus Shot: UTD Physical Exam - Summary Physical Exam Summary: General: well-appearing, no pain distress Skin: On the medial aspect of the right breast there is a 1.5cm subcutaneous fluctuant area with surrounding erythema that is mildly TTP Head: normal Eyes: EOMI, LARISA ENT: normal Neck: supple, nontender Respiratory: CTA, breath sounds present Cardiovascular: RRR Abdomen: soft, nontender Bowel: present Musculoskeletal: normal, strength/ROM intact Neurological: sensory/motor intact, A&O x3 Psychological: affect/mood appropriate Triage Information Reviewed: Yes Vital Signs: Initial Vital Signs Temp 97.6 F 11/12/17 18:46 Pulse 77 11/12/17 18:46 Resp 16 11/12/17 18:46 BP 141/83 11/12/17 18:46 Pulse Ox 100 11/12/17 18:46 Vital Signs Reviewed: Yes Course/Dx - Course Course Of Treatment: BP noted and advised to follow up with PCP. The patient reports she has had the cyst and the skin of her right breast for some time. She says it has been checked by her breast specialist. It's only recently that it's become red and appears infected. We discussed incision and drainage. However with the nature of the cyst unknown to myself and the patient reports on Tuesday she will be calling her breast specialist for follow-up I did not THINK it marlow to incise and drain today. The patient agreed and she preferred to just started on antibiotics and then follow up with her specialist in 2 days. Recheck sooner if worse. - Diagnoses Provider Diagnoses: CELLULITIS/ABSCESS RIGHT BREAST. HTN Discharge - Sign-Out/Discharge Documenting (check all that apply): Patient Departure All imaging exams completed and their final reports reviewed: No Studies - Discharge Plan Condition: Stable Disposition: HOME Prescriptions: Cephalexin CAP* [Keflex CAP*] 500 mg PO QID #38 cap Patient Education Materials: Abscess (ED) Referrals: Kimber IVEY MAIL SORTING SUPERVISORMarie [Primary Care Provider] - Additional Instructions: FOLLOW UP WITH YOUR DOCTOR. CALL 11/14/17, TO ARRANGE FOLLOW UP. GET RECHECKED FOR ANY WORSENING OF YOUR CONDITION; FEVER, YOU FEEL ILL, SPREAD OF INFECTION OR QUESTIONS OR CONCERNS. - Billing Disposition and Condition Condition: STABLE Disposition: Home - Attestation Statements Document Initiated by Scribe: Yes Documenting Scribe: Humberto Wall Provider For Whom Renettae is Documenting (Include Credential): Narayan Denny MD Scribe Attestation: IHumberto , scribed for Narayan Denny MD on 11/12/17 at 2209. Scribe Documentation Reviewed: Yes Provider Attestation: The documentation as recorded by the Humberto hurd accurately reflects the service I personally performed and the decisions made by me, Narayan Denny MD
== END 2017-11-12 20:15 | disposition home or self-care (01) ==
LOC: UCEAST 18:27
DX: N61.1 Abscess of the breast and nipple (principal); I10 Essential (primary) hypertension; Z88.1 Allergy status to other antibiotic agents; Z91.013 Allergy to seafood
CPT/HCPCS: 99212; A9270-GY; G0463

== ENCOUNTER 2018-01-16 11:53 | Emergency (ER) | payer OTHER ==
--- OUTSIDE RECORDS SUMMARY | 2018-01-16 12:12 | XMS REPORT ---
:1955 External Reference #:[id number] Author Organization [employer] Address [address] [facility] [address] Phone [phone] Care Team Providers Name Role Phone Marie Quiroga FNP Primary Care Physician Unavailable Payers Type Date Identification Numbers Payment Provider Subscriber Commercial Effective: Policy Number: [id number] [employer] Tyrone Ambrocio 2010 Expires: 2012 PayID: [id number] [address] [place] [address] Workers Compensation Effective: 2016 Policy Number: Heaven Ambrocio [id number] Onset: 2016 Group Number: [id number] [address] Group Name: Brian [phone] [place] [address] PayID: HEAVEN Problems Date Description Provider Status Onset: 11/11/2017 Cervical spondylosis Fernando Hoffman MD Active Onset: 11/11/2017 Brachial neuritis Fernando Hoffman MD Active Onset: 11/11/2017 Cervical disc disorder Fernando Hoffman MD Active Family History Date [...] 00 Vital Signs Date Vital Result Comment 01/03/2018 Height 64 inches 5'4" Weight 200.00 lb Heart Rate 78 /min BP Systolic 106 mmHg BP Diastolic 68 mmHg Respiratory Rate 12 /min Pain Level 6 BMI (Body Mass Index) 34.3 kg/m2 09/26/2017 Height 64 inches 5'4" Weight 190.00 [...] Procedures Date CPT Code Description Status 04/28/2017 48320 Inject/Drain Joint/Bursa Major W/O US Completed Encounters Type Date Location Provider CPT E/M Dx Office Visit 11/11/2017 [facility] 36929 M47.892 3:00p Of An Hoffman MD M50.122 M50.121 Office Visit 09/26/2017 1:15p [facility] 64895 S46.012D Of Andrea Man MD M54.12 M75.52 Office Visit 08/04/2017 10:45a [facility] 04201 S46.012D Of Andrea Man MD M54.2 M54.12 Office Visit 04/28/2017 1:00p [facility] 55701 S46.012D Of Andrea Man MD S46.012D M54.2 Office Visit 12/20/2016 1:15p [facility] 46733 S46.012D Of Andrea Man MD M54.2 Office Visit 11/08/2016 1:00p [facility] 34484 S46.812D Of Andrea Man MD M75.52 Office Visit 08/30/2016 1:15p [facility] 09307 S46.812A Of Andrea Man MD Office Visit 07/22/2016 1:30p [facility] 99613 S46.812A Of Andrea Man MD S46.012A M75.52 Plan of Care Future Appointment(s):02/16/2018 1:00 pm - Chris [facility]01/03/2018 - Chris Man, MDM50.122 Cervical disc disorder at C5-C6 level with radiculopathyNew Therapy:Physical TherapyFollow up:Follow up: 6 flucdY65.012D Strain of musc/tend the rotator cuff of left shoulder, subs
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
[2018-01-16 13:09] LABS: ABS Basophils 0 10^3/ul (0-0.2); ABS Eosinophils 0.1 10^3/ul (0-0.6); ABS Lymphocytes 1.2 10^3/ul (1.0-4.8); ABS Monocytes 0.3 10^3/ul (0-0.8); ABS Neutrophils 4.7 10^3/ul (1.5-7.7); ABS Nucleated RBC 0 10^3/ul; Eosinophil % 1.2 %; Hematocrit 43 % (35-47); Hemoglobin 14.5 g/dl (12.0-16.0); Lymphocyte % 19.7 %; Mean Corpuscular HGB Conc 34 g/dl (31-36); Mean Corpuscular Hemoglobin 31 pg (27-31); Mean Corpuscular Volume 90 fL (80-97); Mean Platelet Volume 7.3 fL (7.4-10.4); Nucleated Red Blood Cells % 0; Platelet Count 330 10^3/ul (150-450); Red Blood Count 4.74 10^6/ul (4.00-5.40); Red Cell Distribution Width 13 % (10.5-15); White Blood Count 6.3 10^3/ul (3.5-10.8)
[2018-01-16 13:24] LABS: INR 0.9 (0.77-1.02)
[2018-01-16 13:26] LABS: EGFR Non-African American 94.3 (>60)
[2018-01-16] MEDS ORDERED: Iohexol 300* (CONTRAST) 10 ML SDV IV ONE (13:50)
[2018-01-16 14:38] VITALS: BP 126/72
== END 2018-01-16 14:37 | disposition home or self-care (01) ==
LOC: ED 11:53
DX: S20.219A Contusion of unspecified front wall of thorax, initial encounter (principal); V89.2XXA Person injured in unspecified motor-vehicle accident, traffic, initial encounter; Y92.9 Unspecified place or not applicable; I10 Essential (primary) hypertension
CPT/HCPCS: 36415; 71260; 80053; 85025; 85610; 96374; 99282; Q9967

== ENCOUNTER → 2018-06-14 06:18 | Day surgery (SDC) | payer OTHER ==
[~2018-06-14 06:18] MED LIST: Acetaminophen IV 1GM/100ML * 1,000 MG/100 ML VIAL IVPB ONE; Acetaminophen IV 1GM/100ML * 100 ML ONE; Buffered Lidocaine 1% SYRIN* 1 ML/SYRINGE INTRADERM ONE; Dexamethasone IV* 4 MG/ML 1 ML (4 MG) ONE; DiMENhydriNATE IV* 50 MG/ML VIAL IV PUSH PRN; DiMENhydriNATE IV* 50 MG/ML VIAL ONE; Famotidine IV* 10 MG/ML 2 ML (20 mg) IV ONE; Famotidine IV* 10 MG/ML 2 ML (20 mg) ONE; HYDROcodone/ACET. 7.5/325 LIQ* 15 ML UDC ONE; HYDROmorphone INJ1* 1 MG/ML SYRINGE ONE; Lactated Ringers 1000 ML Bag* 1,000 ML IV SCH; Lidocain 1% EPI 1:100,000 * 30 ML MDV ONE; Lidocaine 2% PF * 5 ML VIAL ONE; Midazolam* 1 MG/ML 5 ML VIAL (5 MG) ONE; Naloxone* 0.4 MG/ML 1 ML VIAL IV PRN; Ondansetron INJ* 2 MG/ML VIAL ONE; Propofol* 10 MG/ML 20 ML BTL ONE; Succinylcholine* 20 MG/ML 10 ML VIAL ONE; fentaNYL* 50 MCG/ML 2 ML VIAL (100 MCG VIAL) ONE
[2018-06-14] MEDS: HYDROmorphone INJ1* 1 MG/ML SYRINGE IV PRN ×4 (11:58→12:33)
[2018-06-14 15:30] VITALS: BP 104/67
--- NOTE | 2018-06-14 15:46 | OP ---
OPERATIVE REPORT: DATE OF OPERATION: 06/14/18 DATE OF : 59 SURGEON: Narinder Brennan MD SUBCONTRACT MANAGER: Dr. Aries Del Valle. PRE-OP DIAGNOSIS: Neoplasm, uncertain behavior of thyroid. POST-OP DIAGNOSIS: Neoplasm, uncertain behavior of thyroid. OPERATIVE PROCEDURE: Right thyroid lobectomy. INDICATIONS: This is a 63-year-old woman, who has a multinodular thyroid, one of her thyroid nodules met criteria for fine-needle aspiration. Fine-needle aspiration was performed and was felt to be suspicious for papillary carcinoma. The decision was made to proceed with right hemithyroidectomy, intraoperative assessment and possible total thyroidectomy. ESTIMATED BLOOD LOSS: Less than 30 cc. SPECIMEN: Right lobe thyroid. FINDINGS: Intraoperative evaluation of the specimen was performed by Dr. Ramirez. Touch prep as well as 2 frozen sections were performed and although 1 nodule was suspicious for papillary carcinoma, criteria could not be met to confirm malignancy. DESCRIPTION OF PROCEDURE: On 06/14/18, the patient was brought to the operating room. General anesthesia was induced and a NIM endotracheal tube was placed. The patient was positioned on a shoulder roll. The intended incision was marked. Approximately 6 cc of 1% lidocaine with 1:100,000 epinephrine was infiltrated into the subcutaneous soft tissue. The patient's neck was then prepped with Betadine. The patient was draped in sterile fashion and a time-out was performed. Each side of the neck was tapped with good response on the NIM monitor. The procedure was begun. A 15-blade was used to incise the skin. Deeper dissection was undertaken through the level of the platysma and subcutaneous fat with Bovie cautery. Superior and inferior subplatysmal flaps were then raised and Juan self-retainer was placed. The strap muscles were then identified and divided longitudinally along the median raphe. The strap muscles were elevated off the right lobe of the thyroid. The superior pole region was explored. The superior vascular pedicle was identified, was ligated with hemoclips and divided with the LigaSure device. At this point, attention was then turned towards the anterior wall of the trachea. The thyroid isthmus was identified. It was elevated off the anterior wall of the trachea and transected with the LigaSure device. Attention was then turned inferiorly. The inferior vascular pedicle was dissected. The inferior vascular pedicle was ligated with a combination of hemoclips and divided with either the bipolar and scissor or the LigaSure device. The tracheoesophageal groove region was explored. The recurrent laryngeal nerve was positively identified visually and confirmed with a nerve stimulator. This was used as a guide for further dissection superiorly. At least one parathyroid was seen and preserved with its blood supply intact during the remainder of the dissection and the middle thyroid vein was identified, ligated with hemoclips, and divided with LigaSure device. The thyroid was rolled medially and ultimately freed from its attachment to the trachea and Martinez's ligament. Once the thyroid was removed, the specimen was brought down to Pathology. A touch prep and 2 frozen sections were performed, but definitive papillary carcinoma was not seen. The decision was then made to close the wound. I went back up and scrubbed back in. I irrigated the wound copiously. Controlled a few very small potential bleeding sites that were oozing with bipolar cautery. I placed some Surgicel into the wound abutting the region of Martinez's ligament. A Valsalva was performed and there was no further bleeding. The strap muscles were reapproximated with 3-0 Vicryl. The platysma was then reapproximated with 3-0 Vicryl and the skin was closed with 4-0 nylon in a running subcuticular fashion. Mastisol and Steri- Strips were applied. The patient was then extubated and delivered to PACU in stable condition. [id number]/[facility] #: [id number] [place]
== END | disposition home or self-care (01) ==
LOC: OR 06:18
PROVIDERS: ATTEND Otolaryngology
DX: D44.0 Neoplasm of uncertain behavior of thyroid gland (principal); R07.0 Pain in throat; I10 Essential (primary) hypertension; Z90.710 Acquired absence of both cervix and uterus; Z88.8 Allergy status to other drugs, medicaments and biological substances; Z91.013 Allergy to seafood; E06.3 Autoimmune thyroiditis
CPT/HCPCS: 88307; 88331; 88332; J0330; J1100; J1170; J1240; J2250; J2405; J2704; J3010

== ENCOUNTER 2019-01-06 12:20 | Emergency (ER) | payer OTHER ==
[2019-01-06 12:51] VITALS: BP 143/91
[2019-01-06 13:32] LABS: Influenza A Molecular NEGATIVE (Negative); Influenza B Molecular NEGATIVE (Negative)
--- NOTE | 2019-01-06 13:46 | UC ---
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---She has not had flu vaccine yet - History of Current Complaint Chief Complaint: UCGeneralIllness Stated Complaint: ACHES, AND FEVER Time Seen by Provider: 01/06/19 13:39 Hx Obtained From: Patient ?: No Onset/Duration: Sudden Onset, Lasting Days - 2, Still Present Timing: Constant Pain Intensity: 1 Pain Scale Used: 0-10 Numeric Character: Cough: Nonproductive Aggravating Factors: Nothing Alleviating Factors: OTC Meds Associated Signs And Symptoms: Positive: Fever, Chills, URI, Nasal Congestion, Sinus Discomfort - Allergies/Home Medications Allergies/Adverse Reactions: Allergies Allergy/AdvReac Type Severity Reaction Status Date / Time ciprofloxacin [From Cipro] Allergy Severe Hives Verified 01/06/19 12:41 nitrofurantoin Allergy Severe Swelling Verified 01/06/19 12:41 [From Macrodantin] prednisolone Allergy Severe See Comment Verified 01/06/19 12:41 shellfish derived Allergy Severe Rash, itchy Verified 01/06/19 12:41 Home Medications: Home Medications Acetaminophen [Acetaminophen Extra Strength] 1,000 mg PO ONCE 01/06/19 [History Confirmed 01/06/19] Levothyroxine TAB* [Synthroid TAB*] 50 mcg PO DAILY 01/06/19 [History Confirmed 01/06/19] PMH/Surg Hx/FS Hx/Imm Hx Previously Healthy: No Endocrine History: Hypothyroidism Cardiovascular History: Hypertension GI/ History: Gastroesophageal Reflux Cancer History: Other Other Cancer History: thyroid - Surgical History Surgical History: Yes Surgery Procedure, Year, and Place: hysterectomy 2006. appendectomy. tonsillectomy. skin lesions removed from arm, leg, forehead. R thyroidectomy 2019 - Family History Known Family History: Positive: Hypertension, Other - [place] - Social History Occupation: Employed Full-time Lives: With Family Alcohol Use: None Substance Use Type: None Smoking Status (MU): Never Smoked Tobacco Have You Smoked in the Last Year: No - Immunization History Most Recent Influenza Vaccination: Most Recent Tetanus Shot: UTD Review of Systems All Other Systems Reviewed And Are Negative: Yes Constitutional: Positive: Fever, Chills, Fatigue Skin: Positive: Negative Eyes: Positive: Negative ENT: Positive: Sore Throat, Sinus Congestion Respiratory: Positive: Cough Cardiovascular: Positive: Negative Gastrointestinal: Positive: Negative Genitourinary: Positive: Negative Motor: Positive: Negative Neurovascular: Positive: Negative Musculoskeletal: Positive: Arthralgia, Myalgia Neurological: Positive: Headache Psychological: Positive: Negative Is Patient Immunocompromised?: No Physical Exam Triage Information Reviewed: Yes Appearance: Well-Nourished, Ill-Appearing, Pain Distress Vital Signs: Initial Vital Signs Temp 98.5 F 01/06/19 12:43 Pulse 93 01/06/19 12:43 Resp 20 01/06/19 12:43 BP 143/91 01/06/19 12:43 Pulse Ox 100 01/06/19 12:43 Vital Signs Reviewed: Yes Eye Exam: Normal Eyes: Positive: Conjunctiva Clear ENT Exam: Normal ENT: Positive: Normal ENT inspection, Hearing grossly normal, Pharyngeal erythema, Nasal congestion, Uvula midline. Negative: Tonsillar swelling, Tonsillar exudate, Trismus, Muffled voice, Hoarse voice, Dental tenderness, Sinus tenderness Dental Exam: Normal Neck exam: Normal Neck: Positive: Supple, Nontender, No Lymphadenopathy Respiratory Exam: Normal Respiratory: Positive: Chest non-tender, Lungs clear, Normal breath sounds, No respiratory distress, No accessory muscle use Cardiovascular Exam: Normal Cardiovascular: Positive: RRR, No Murmur, Pulses Normal, Brisk Capillary Refill Musculoskeletal Exam: Normal Musculoskeletal: Positive: Strength Intact, ROM Intact, No Edema Neurological Exam: Normal Neurological: Positive: Alert, Muscle Tone Normal Psychological Exam: Normal Skin Exam: Normal Diagnostics - Laboratory Lab Results: RST -Influenza A/B - Respiratory Course/Dx - Course Course Of Treatment: rest increase fluids tylenol ibuprofen otc meds for symptom relief--follow with pcp - Differential Dx/Diagnosis Provider Diagnosis: Viral illness, URI (upper respiratory infection), Hypertension Discharge ED - Sign-Out/Discharge Documenting (check all that apply): Patient Departure All imaging exams completed and their final reports reviewed: No Studies - Discharge Plan Condition: Stable Disposition: HOME Patient Education Materials: Upper Respiratory Infection (ED), Viral Syndrome ( ED) Forms: *Work Release Referrals: Mary Ann Oakes NP [Primary Care Provider] - If Needed - Billing Disposition and Condition Condition: STABLE Disposition: Home
== END 2019-01-06 14:28 | disposition home or self-care (01) ==
LOC: UCEAST 12:20
DX: J06.9 Acute upper respiratory infection, unspecified (principal); B34.9 Viral infection, unspecified; I10 Essential (primary) hypertension; R51 Headache; M79.10 Myalgia, unspecified site; E89.0 Postprocedural hypothyroidism; Z79.890 Hormone replacement therapy; Z91.013 Allergy to seafood; Z88.8 Allergy status to other drugs, medicaments and biological substances; Z88.1 Allergy status to other antibiotic agents
CPT/HCPCS: 87651; 99201; G0463

== ENCOUNTER 2019-03-19 09:16 | Emergency (ER) | payer SELFPAY ==
[2019-03-19] MEDS ORDERED: Aspirin 81 mg CHEW TAB* 81 MG TAB.CHEW PO ONE (10:08)
[2019-03-19 10:38] LABS: ABS Lymphocytes 0.9 10^3/ul (1.0-4.8); ABS Monocytes 0.4 10^3/ul (0-0.8); ABS Neutrophils 3.9 10^3/ul (1.5-7.7); Eosinophil % 0.4 %; Hematocrit 42 % (35-47); Hemoglobin 14.9 g/dL (12.0-16.0); Lymphocyte % 16.8 %; Mean Corpuscular HGB Conc 36 g/dL (31-36); Mean Corpuscular Hemoglobin 32 pg (27-31); Mean Corpuscular Volume 91 fL (80-97); Mean Platelet Volume 7.8 fL (7.4-10.4); Platelet Count 312 10^3/uL (150-450); Red Cell Distribution Width 13 % (10-15); White Blood Count 5.2 10^3/uL (3.5-10.8)
[2019-03-19 10:51] LABS: Activated Partial Thrombo Time 36.1 seconds (26.0-38.0); INR 0.94 (0.82-1.09)
[2019-03-19 11:02] LABS: Albumin 4.5 g/dL (3.2-5.2); Albumin/Globulin Ratio 1.7 (1-3); BUN/Creatinine Ratio 13.5 (8-20); Calcium 9.6 mg/dL (8.6-10.3); EGFR African American 77.8 (>60); EGFR Non-African American 64.3 (>60); Globulin 2.7 g/dL (2-4); Magnesium 1.8 mg/dL (1.9-2.7); Potassium 3.1 mmol/L (3.5-5.0); Total Bilirubin 0.3 mg/dL (0.2-1.0); Total Protein 7.2 g/dL (6.4-8.9)
[2019-03-19] MEDS ORDERED: NS 0.9% 1000 ML** 1,000 ML IV ONE (11:15)
[2019-03-19 11:18] LABS: TSH (Thyroid Stimulating Horm) 3.76 mcIU/mL (0.34-5.60)
[2019-03-19 11:20] LABS: Free T4 0.94 ng/dL (0.61-1.12)
--- OUTSIDE RECORDS SUMMARY | 2019-03-19 11:27 | XMS REPORT | Continuity of Care Document ---
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 Cervical disc disorder Fernando Hoffman MD Onset: 11/11/2017 Social History Type Date Description Comments Sex Unknown ETOH Use Rarely consumes alcohol Tobacco Use Start: Unknown Patient has never smoked Smoking Status Reviewed: 01/15/19 Patient has never smoked Exercise Type/Frequency Exercises sporadically Allergies, Adverse Reactions, Alerts Active Allergies Reaction Severity Comments Date Cipro 07/22/2016 Macrodantin 09/26/2017 Shellfish-derived Products 09/26/2017 Prednisolone 01/15/2019 Medications Active Medications SIG Qnty Indications Ordering Provider Date Losartan Potassium 1 by mouth every Unknown 50mg day Tablets Calcium & Vitamin D3 Unknown [facility] Grapeseed Extract Unknown 500-50mg Capsules Losartan take 1 tablet by Unknown Potassium/Hydrochlorot mouth twice a day hiazide 50-12.5mg Tablets Levothyroxine Sodium take 1 tablet by Unknown mouth 30 Minutes 50mcg Tablets Before Breakfast Omeprazole 1 by mouth every Unknown 20mg Capsules day DR Immunizations Description No Information Available Vital Signs Date Vital Result Comment 01/15/2019 3:04pm Height 64 inches 5'4" Weight 200.00 lb Heart Rate 90 /min BP Systolic 138 mmHg BP Diastolic 78 mmHg Respiratory Rate 16 /min Pain Level 6 BMI (Body Mass Index) 34.3 kg/m2 08/16/2018 2:38pm Height 64 inches 5'4" Weight 200.00 lb Heart Rate 78 /min BP Systolic 130 mmHg BP Diastolic 70 mmHg Respiratory Rate 12 /min Pain Level 8 BMI (Body Mass Index) 34.3 kg/m2 Results Description No Information Available Procedures Description No Information Available Medical Devices Description No Information Available Encounters Type Date Location Provider Dx Diagnosis Office Visit 01/15/2019 [facility] Chris Torres S46.012D Strain of 2:15p at Robi Man MD musc/tend the rotator cuff of left shoulder, subs M75.52 Bursitis of left shoulder Assessments Date Code Description Provider 01/15/2019 S46.012D Strain of muscle(s) and tendon(s) of the Chris Man MD rotator cuff of left shoulder, subsequent encounter 01/15/2019 M75.52 Bursitis of left shoulder Chris Man MD Plan of Treatment Future Appointment(s):04/09/2019 2:45 pm - Chris Man MD at [facility] at [facility]/15/2019 - Chris Man MDS46.012D Strain of muscle(s) and tendon(s) of the rotator cuff of left shoulder, subsequent encounterFollow up:Follow up: for H&PM75.52 Bursitis of left shoulder Functional Status Description No Information Available Mental Status Description No Information Available Referrals Description No Information Available
[2019-03-19] MEDS ORDERED: Potassium Chlor TAB* 20 MEQ TAB.ER PO ONE (11:41)
[2019-03-19 13:29] VITALS: BP 99/74
--- NOTE | 2019-03-20 08:19 | ED ---
HPI Cardiac - HPI Summary HPI Summary: Patient is a 64-year-old female who arrives by way of EMS with chest pain which began this morning. She states she was on her way to work this morning when she was feeling palpitations. She has felt these palpitations for over one month. However, she is only felt pain and some dizziness this morning and this is new for her. She denies any SOB. She denies cardiac history. She did state she started a new job a few days ago and has been under a lot of stress about the changes. She does have a history of some anxiety. She did take an aspirin on her way to work this morning due to her midsternal, nonradiating chest pain. She states this did not improve her symptoms. She was given one nitroglycerin in route by [place] [facility]. She states this made her blood pressure drop and continued to have dizziness, but she did not know much of a change in her chest discomfort. Last echo and stress test 8 years ago and normal. Pt was seen here for CP 8 years ago and since then has been seen for palpitations. She also states she is chronically hypokalemic and tends to get dehydrated, which could complicate her symptoms. On arrival to the ED, pt denies any pain. Denies any palpitations at this time, but states she continues to be anxious. Denies any recent illness, fevers, sweats, or chills. No change in medications. - History of Current Complaint Chief Complaint: EDChestPainROMI Stated Complaint: CHEST PAIN PER EMS Time Seen by Provider: 03/19/19 09:44 Hx Obtained From: Patient Onset/Duration: Started Minutes Ago Timing: Constant Initial Severity: Moderate Current Severity: Mild Pain Intensity: 0 Pain Scale Used: 0-10 Numeric Chest Pain Location: Mid Sternal Chest Pain Radiates: No Character: Pressure/Squeezing Aggravating Factor(s): Nothing Alleviating Factor(s): Rest, Medication, NTG 123, EMS Tx Associated Signs and Symptoms: Positive: Chest Pain, Anxiety, Recent Stress, Headaches, Diaphoresis, Palpitations. Negative: Vision Changes, Weakness, Dizziness, Shortness of Breath, Fever, Chills - Allergy/Home Medications Allergies/Adverse Reactions: Allergies Allergy/AdvReac Type Severity Reaction Status Date / Time ciprofloxacin [From Cipro] Allergy Severe Hives Verified 03/19/19 09:25 nitrofurantoin Allergy Severe Swelling Verified 03/19/19 09:25 [From Macrodantin] prednisolone Allergy Severe See Comment Verified 03/19/19 09:25 shellfish derived Allergy Severe Rash, itchy Verified 03/19/19 09:25 PMH/Surg Hx/FS Hx/Imm Hx Previously Healthy: Yes Endocrine/Hematology History: Reports: Hx Thyroid Disease Denies: Hx Diabetes, Hx Anemia Cardiovascular History: Reports: Hx Hypertension - CONTROLLED BY MEDICATION Denies: Hx Myocardial Infarction, Hx Pacemaker/ICD, Other Cardiovascular Problems/Disorders Respiratory History: Denies: Hx Asthma, Hx Chronic Obstructive Pulmonary Disease (COPD), Hx Pulmonary Embolism, Other Respiratory Problems/Disorders GI History: Reports: Other GI Disorders - h.Pylori with pre cancer cells, polyp in intestine precancer Denies: Hx Jaundice, Hx Ulcer History: Denies: Hx Renal Disease Musculoskeletal History: Reports: Hx Bursitis - left shoulder/rotator, Other Musculoskeletal History - degenerative disc disease 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 appendectomy. tonsillectomy. skin lesions removed from arm, leg, forehead. R thyroidectomy 2019 Hx Anesthesia Reactions: Yes - nausea after appy in 1970 - Immunization History Date of Influenza Vaccine: 2018 Hx Pertussis Vaccination: No Immunizations Up to Date: Yes Infectious Disease History: No Infectious Disease History: Denies: Hx Hepatitis, Hx Human Immunodeficiency Virus (HIV), Traveled Outside the [place] in Last 30 Days - Family History Known Family History: Positive: Hypertension, Other - [place] - Social History Occupation: Employed Full-time Lives: With Family Alcohol Use: None Hx Substance Use: No Substance Use Type: Reports: None Smoking Status (MU): Never Smoked Tobacco Have You Smoked in the Last Year: No Review of Systems Positive: Fatigue. Negative: Fever, Chills, Skin Diaphoresis Negative: Sore Throat, Ear Ache Positive: Chest Pain Negative: Shortness Of Breath, Cough Genitourinary: Negative Positive: no symptoms reported, see HPI Negative: Arthralgia, Myalgia Skin: Negative Positive: Anxious All Other Systems Reviewed And Are Negative: Yes Physical Exam Triage Information Reviewed: Yes Vital Signs On Initial Exam: Initial Vitals Temp Pulse Resp BP Pulse Ox 98.5 F 106 20 147/100 100 03/19/19 09:18 03/19/19 09:18 03/19/19 09:18 03/19/19 09:18 03/19/19 09:18 Vital Signs Reviewed: Yes Appearance: Positive: Well-Appearing Skin: Positive: Dry Head/Face: Positive: Normal Head/Face Inspection Eyes: Positive: EOMI, LARISA, Conjunctiva Clear Neck: Positive: Supple, Nontender, No Lymphadenopathy Respiratory/Lung Sounds: Positive: Clear to Auscultation, Breath Sounds Present Cardiovascular: Positive: RRR, Pulses are Symmetrical in both Upper and Lower Extremities. Negative: Leg Edema Left, Leg Edema Right Abdomen Description: Positive: Nontender, No Organomegaly, Soft Bowel Sounds: Positive: Present Musculoskeletal: Positive: Normal, Strength/ROM Intact Neurological: Positive: Speech Normal Psychiatric: Positive: Anxious AVPU Assessment: Alert Procedures - Sedation Patient Received Moderate/Deep Sedation with Procedure: No Diagnostics - Vital Signs Vital Signs Temp Pulse Resp BP Pulse Ox 03/19/19 13:30 97.9 F 80 16 99/74 100 03/19/19 13:22 78 17 99/74 100 03/19/19 13:19 78 10 114/79 100 03/19/19 13:00 81 13 100 03/19/19 12:52 80 14 104/77 99 03/19/19 12:22 81 15 111/78 99 03/19/19 12:00 92 19 96 03/19/19 11:52 85 10 114/80 99 03/19/19 11:22 93 21 117/77 98 03/19/19 11:00 95 19 95 03/19/19 10:52 96 20 123/84 96 03/19/19 10:40 98 16 126/87 96 03/19/19 10:00 99 24 99 03/19/19 09:52 105 27 144/97 99 03/19/19 09:45 105 28 122/92 99 03/19/19 09:22 108 18 147/100 99 03/19/19 09:20 109 98 03/19/19 09:18 98.5 F 106 20 147/100 100 - Laboratory Lab Results: Lab Results 03/19/19 03/19/19 03/19/19 Range/Units 10:21 10:26 10:26 WBC 5.2 (3.5-10.8) 10^3/uL RBC 4.60 (3.70-4.87) 10^6 /uL Hgb 14.9 (12.0-16.0) g/dL Hct 42 (35-47) % MCV 91 (80-97) fL MCH 32 H (27-31) pg MCHC 36 (31-36) g/dL RDW 13 (10-15) % Plt Count 312 (150-450) 10^3/uL MPV 7.8 (7.4-10.4) fL Neut % (Auto) 75.1 % Lymph % (Auto) 16.8 % [place] % (Auto) 7.3 % Eos % (Auto) 0.4 % Baso % (Auto) 0.4 % Absolute Neuts (auto) 3.9 (1.5-7.7) 10^3/ul Absolute Lymphs (auto) 0.9 L (1.0-4.8) 10^3/ul Absolute Monos (auto) 0.4 (0-0.8) 10^3/ul Absolute Eos (auto) 0.0 (0-0.6) 10^3/ul Absolute Basos (auto) 0.0 (0-0.2) 10^3/ul Absolute Nucleated RBC 0.0 10^3/ul Nucleated RBC % 0.0 INR (Anticoag Therapy) (0.82-1.09) APTT (26.0-38.0) seconds Sodium 132 L (135-145) mmol/L Potassium 3.1 L (3.5-5.0) mmol/L Chloride 96 L (101-111) mmol/L Carbon Dioxide 23 (22-32) mmol/L Anion Gap 13 H (2-11) mmol/L BUN 12 (6-24) mg/dL Creatinine 0.89 (0.51-0.95) mg/dL Est GFR ( Amer) 77.8 (>60) Est GFR (Non-Af Amer) 64.3 (>60) BUN/Creatinine Ratio 13.5 (8-20) Glucose 106 H (70-100) mg/dL Lactic Acid 3.8 H* (0.5-2.0) mmol/L Calcium 9.6 (8.6-10.3) mg/dL Magnesium 1.8 L (1.9-2.7) mg/dL Total Bilirubin 0.30 (0.2-1.0) mg/dL AST 23 (13-39) U/L ALT 23 (7-52) U/L Alkaline Phosphatase 85 (34-104) U/L Troponin I 0.00 (<0.03) ng/mL B-Natriuretic Peptide (<=100) pg/mL Total Protein 7.2 (6.4-8.9) g/dL Albumin 4.5 (3.2-5.2) g/dL Globulin 2.7 (2-4) g/dL Albumin/Globulin Ratio 1.7 (1-3) TSH 3.76 (0.34-5.60) mcIU/mL Free T4 0.94 (0.61-1.12) ng/dL 03/19/19 03/19/19 Range/Units 10:26 10:27 WBC (3.5-10.8) 10^3/uL RBC (3.70-4.87) 10^6 /uL Hgb (12.0-16.0) g/dL Hct (35-47) % MCV (80-97) fL MCH (27-31) pg MCHC (31-36) g/dL RDW (10-15) % Plt Count (150-450) 10^3/uL MPV (7.4-10.4) fL Neut % (Auto) % Lymph % (Auto) % [place] % (Auto) % Eos % (Auto) % Baso % (Auto) % Absolute Neuts (auto) (1.5-7.7) 10^3/ul Absolute Lymphs (auto) (1.0-4.8) 10^3/ul Absolute Monos (auto) (0-0.8) 10^3/ul Absolute Eos (auto) (0-0.6) 10^3/ul Absolute Basos (auto) (0-0.2) 10^3/ul Absolute Nucleated RBC 10^3/ul Nucleated RBC % INR (Anticoag Therapy) 0.94 (0.82-1.09) APTT 36.1 (26.0-38.0) seconds Sodium (135-145) mmol/L Potassium (3.5-5.0) mmol/L Chloride (101-111) mmol/L Carbon Dioxide (22-32) mmol/L Anion Gap (2-11) mmol/L BUN (6-24) mg/dL Creatinine (0.51-0.95) mg/dL Est GFR ( Amer) (>60) Est GFR (Non-Af Amer) (>60) BUN/Creatinine Ratio (8-20) Glucose (70-100) mg/dL Lactic Acid (0.5-2.0) mmol/L Calcium (8.6-10.3) mg/dL Magnesium (1.9-2.7) mg/dL Total Bilirubin (0.2-1.0) mg/dL AST (13-39) U/L ALT (7-52) U/L Alkaline Phosphatase (34-104) U/L Troponin I (<0.03) ng/mL B-Natriuretic Peptide 22 (<=100) pg/mL Total Protein (6.4-8.9) g/dL Albumin (3.2-5.2) g/dL Globulin (2-4) g/dL Albumin/Globulin Ratio (1-3) TSH (0.34-5.60) mcIU/mL Free T4 (0.61-1.12) ng/dL Result Diagrams: 03/19/19 10:26 03/19/19 10:21 Lab Statement: Any lab studies that have been ordered have been reviewed, and results considered in the medical decision making process. Disposition - Course Course Of Treatment: On arrival into the ED, the patient appears well. She does appear to be slightly anxious, but denies any pain currently. She states she has had the symptoms in the past of palpitations, however has never had CP before. Once her CTA on arrival. Vital signs are stable. Labs obtained which show hyponatremia and hypokalemia. Patient was repleted with 2 L fluids and given 40 mEq potassium chloride. She also had a lactic of 3.8. This is likely secondary to anxiety she appears very dehydrated, however states continues to drink a lot of water. She has a known history of hypokalemia has taken supplements the past. EKG obtained shows normal sinus rhythm with no evidence of ST elevation. Rate of 103 QTc 477. Heart score equals 1. Risk of MACE of 0.9-1.7%. Since arrival into the ED, the patient has been stable, appears well and vital signs have remained stable. Troponin is 0.00. No recurrence of symptoms and patient has no past medical history. At this time, she will be discharged home with the diagnosis of hypokalemia and anxiety. She will have close follow-up with PCP and cardiology and I have given her 5 days of 20 mEq potassium chloride. - Differential Dx - Cardiopulmonary Differential Diagnoses - Cardiopulmonary: Other - chest pain, angina, hypokalemia, hyponatremia - Diagnoses Provider Diagnoses: Anxiety, Atypical chest pain Discharge ED - Sign-Out/Discharge Documenting (check all that apply): Patient Departure - Discharge Plan Condition: Stable Disposition: HOME Prescriptions: Potassium Chlor TAB* [Potassium Chlor TAB 20 MEQ*] 20 meq PO DAILY #5 tab.er Patient Education Materials: Potassium Chloride (By mouth), Heart Palpitations (ED), Dehydration (ED), Hypokalemia (ED) Referrals: Mary Ann Oakes NP [Primary Care Provider] - Marie Arreola MD [Medical Doctor] - Additional Instructions: Please follow up with Dr. Arreola Potassium chloride 20mg once daily x 5 days Follow up with PCP related to your potassium chloride Drink plenty of water - Billing Disposition and Condition Condition: STABLE Disposition: Home
== END 2019-03-19 13:30 | disposition home or self-care (01) ==
LOC: ED 09:16
DX: F41.9 Anxiety disorder, unspecified (principal); R00.0 Tachycardia, unspecified; R42 Dizziness and giddiness; R07.89 Other chest pain; R00.2 Palpitations; R61 Generalized hyperhidrosis; R51 Headache; I10 Essential (primary) hypertension; Z88.8 Allergy status to other drugs, medicaments and biological substances; Z88.1 Allergy status to other antibiotic agents; Z91.013 Allergy to seafood
CPT/HCPCS: 36415; 71046; 80053; 83605; 83735; 83880; 84439; 84443; 84484; 85025; 85610; 85730; 93005; 96360; 99283; A9270-GY